=== PATIENT | male | born 1970 | race Caucasian/White ===

== ENCOUNTER 2025-02-19 16:46 | Emergency (ER) | payer OTHER, SELFPAY ==
[2025-02-19 16:51] VITALS: BP 141/89
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
[2025-02-19] MEDS: ADACEL 0.5 ML IM (19:00)
[2025-02-19] MEDS: MOTRIN 600 MG PO (19:00)
== END 2025-02-19 19:17 | disposition home or self-care (01) ==
LOC: EMR 16:46
PROVIDERS: EMERGENCY PHYSICIAN Student in an Organized Health Care Education/Training Program; FAMILY PHYSICIAN Internal Medicine
DX: T25.132A Burn of first degree of left toe(s) (nail), initial encounter (principal); X12.XXXA Contact with other hot fluids, initial encounter; Z23 Encounter for immunization
CPT/HCPCS: 90471; 99282; 90715

== ENCOUNTER → 2025-03-02 08:07 | Outpatient (REF) | payer OTHER, SELFPAY | LOC: WOUND 08:07 | PROVIDERS: ATTENDING PHYSICIAN Surgery | DX: T25.232A Burn of second degree of left toe(s) (nail), initial encounter (principal); X12.XXXA Contact with other hot fluids, initial encounter | CPT/HCPCS: 99203 ==

== ENCOUNTER → 2025-03-10 08:56 | Outpatient (REF) | payer OTHER, SELFPAY | LOC: WOUND 08:56 | PROVIDERS: ATTENDING PHYSICIAN Surgery | DX: T25.232A Burn of second degree of left toe(s) (nail), initial encounter (principal); X12.XXXA Contact with other hot fluids, initial encounter | CPT/HCPCS: 99212 ==